=== PATIENT | male | born 1980 | race Caucasian/White ===

== ENCOUNTER 2016-10-22 12:17 | Outpatient (CLI) | payer OTHER ==
--- NOTE | 2016-10-22 13:48 | DIAGNOSTIC IMAGING REPORT ---
PROCEDURE: XR SHOULDER INJECTION (PRE MR) INDICATION: RT SHOULDER IMPINGEMENT TECHNIQUE: Written informed consent was obtained from the patient prior to the procedure. Risks discussed included but were not limited to bleeding, infection, injury to adjacent structures, pain, temporary anesthesia, and allergic reaction. It was agreed to proceed. RPO position with the arm externally rotated. Preliminary fluoroscopic imaging demonstrated slight lateral acromial downsloping. An appropriate skin entry site was chosen and marked. The skin was prepped and draped in the usual sterile fashion. Skin and subcutaneous tissue was anesthetized thoroughly with 1% lidocaine. Under intermittent fluoroscopic guidance, a 22 gauge needle was directed into right glenohumeral joint. Through this, a 9.1 ml mixture of contrast and anesthetic was injected (3 ml Isovue 200, 3 ml 0.5% bupivacaine, 3 ml 1% Xylocaine, 0.1 ml gadolinium). Four fluoroscopic spot images were acquired documenting the needle in position and post joint filling. Total fluoro time 1.0 minutes. Cumulative dose 150.60 mGy. The needle was removed, hemostasis was achieved, the skin was cleansed, and a sterile bandage was applied. The patient was helped off the table. The was sent to the MR scanner in stable condition. He tolerated the procedure well and there were no immediate complications. COMPARISON: Outside films 08/18/2016 FINDINGS: Intra-articular position confirmed. IMPRESSION: 1. Successful pre MRI right shoulder injection. 2. MR arthrogram is pending.
--- NOTE | 2016-10-22 16:58 | DIAGNOSTIC IMAGING REPORT ---
PROCEDURE: MR UPPER EXT JOINT W/CONT-RT INDICATION: RT SHOULDER IMPINGEMENT TECHNIQUE: Axial T1, T1 fat sat, gradient echo, coronal proton density, proton density fat sat, T1 fat sat, sagittal proton density, proton density fat sat, and T1 fat sat sequences were obtained through the left shoulder following uncomplicated administration of intra-articular gadolinium earlier the same day. COMPARISON: Plain films 08/18/2016 FINDINGS: Rotator cuff: There is attenuation of the distal critical zone fibers and intrinsic intermediate signal in this region. There is slight undersurface irregularity of the anterior infraspinatus fibers and mild heterogeneous signal of the more proximal critical zone fibers. Small amount of subacromial subdeltoid bursal edema. No full-thickness rotator cuff tear. The subscapularis tendon is intact. Transverse humeral ligament component is also intact. Biceps tendon: Intact. Normal in position and signal. Iatrogenic fluid in the biceps tendon sheath. The rotator interval structures are intact. Osseous structures and articular surfaces: Subcortical irregularity with small intraosseous cyst formation in the posterolateral humeral head. Minimal hypertrophy at the acromioclavicular joint. Trace undersurface spurring along the lateral edge of the type 2 acromion. The glenohumeral joint is in normal position. Slight cartilage thinning centrally in the glenoid fossa. No focal chondral defects. Labral ligamentous complex: The labrum and supporting ligaments of the humeral head are intact. Fluid, soft tissues, and joint space: Musculature is normal in bulk and signal. Iatrogenic joint effusion present. No paralabral or spinoglenoid notch cysts. Neurovascular bundle in the axilla appears normal. The joint capsule appears normal in thickness without obvious synovitis. IMPRESSION: 1. Tendinopathy and minor partial thickness tearing of critical zone fibers of the rotator cuff, likely secondary to mild subacromial impingement. 2. Mild reactive subacromial subdeltoid bursitis. 3. Minimal degenerative change in the glenohumeral joint.
== END 2016-10-22 23:00 | disposition home or self-care (01) ==
LOC: XR SRH 12:17
PROC: BQ171ZZ Fluoroscopy of Right Knee using Low Osmolar Contrast (ICD-10-PCS; principal; 2016-10-22)
DX: M75.41 Impingement syndrome of right shoulder (principal)